=== PATIENT | female | born 1965 | race Caucasian/White ===

== ENCOUNTER → 2016-09-07 | Outpatient (CLI) | payer BC ==
[~2016-09-07] MED LIST: CHOL1TAB46 PO; LISI-461 PO; MAGN500C PO; METO50TA7 PO; SUMA50TA15 PO
--- NOTE | 2016-09-08 12:17 | MAMMOGRAPHY REPORT ---
BILATERAL DIGITAL SCREENING MAMMOGRAM TOMOSYNTHESIS WITH CAD: 09/07/2016 CLINICAL HISTORY: Routine screening. Patient has no complaints. TECHNIQUE: Bilateral breast tomosynthesis in addition to standard 2D mammography was performed. Curr ent study was also evaluated with a Computer Aided Detection (CAD) system. COMPARISON: Comparison is made to exams dated: 09/03/2015 mammogram, 08/29/2014 mammogram, 08/18/2013 mammogram - [facility], 07/27/2012 mammogram, 07/16/2011 mammogram, and 07/15/2010 mamm ogram. BREAST COMPOSITION: The tissue of both breasts is heterogeneously dense, which may obscure small ma sses. FINDINGS: There is architectural distortion in the 12:00 middle to posterior right breast, for whic h additional spot compression tomosynthesis views and possible targeted ultrasound is recommended. There are scattered benign-appearing round and punctate microcalcifications in the breasts. No othe r suspicious mass, architectural distortion or cluster of microcalcifications is seen. IMPRESSION: ACR BI-RADS CATEGORY 0: INCOMPLETE EVALUATION: NEED ADDITIONAL IMAGING EVALUATION The architectural distortion in the 12:00 right breast needs additional evaluation. The patient will be called to schedule an appointment. Approximately 10% of breast cancers are not detected with mammography. A negative mammographic repor t should not delay biopsy if a clinically suggestive mass is present. Rochelle Neal M.D. ay/:09/07/2016 22:33:43 Clip Loading Machine Adjuster: Vanessa MADRID(Adolfo)(Aubree), [facility] letter sent: Addl Imaging 0 BI-RADS Code: ACR BI-RADS Category 0: Incomplete Evaluation: Need Additional Imaging Evaluation
== END | disposition home or self-care (01) ==
LOC: C.MAMM 08:01
PROVIDERS: ATTEND Surgery
DX: Z12.31 Encounter for screening mammogram for malignant neoplasm of breast (principal); R92.8 Other abnormal and inconclusive findings on diagnostic imaging of breast

== ENCOUNTER → 2016-09-16 | Outpatient (CLI) | payer BC ==
--- NOTE | 2016-09-16 12:48 | MAMMOGRAPHY REPORT ---
UNILATERAL RIGHT DIGITAL DIAGNOSTIC MAMMOGRAM TOMOSYNTHESIS AND TARGETED RIGHT ULTRASOUND: 09/16/2016 CLINICAL HISTORY: Callback from screening mammogram for right breast architectural distortion. The patient reports a history of a prior benign excisional biopsy at age 30. She has a strong family hi story of breast cancer including her sister, her mother, and aunts. TECHNIQUE: Breast tomosynthesis in addition to standard 2D mammography was performed. Spot rashawn loreta right CC tomosynthesis images including C views were obtained. COMPARISON: Comparison is made to exams dated: 09/07/2016 mammogram, 09/03/2015 mammogram, 08/29/2014 m ammogram, 08/18/2013 mammogram - [facility], 07/27/2012 mammogram, and 07/16/2011 mamm ogram. BREAST COMPOSITION: The tissue of the right breast is heterogeneously dense, which may obscure smal l masses. FINDINGS: Spot compression views of the right breast demonstrate persistent architectural distortion in the right 12:00 breast. When compared to prior exams, the appearance of this region does appear similar to prior 2-D views dating back to 2007, although the architectural distortion is better abhijit reciated on the tomosynthesis images so comparison to prior 2-D exams is difficult. Targeted ultrasound was performed of the right 12:00 breast in the region of the architectural disto rtion. In the right breast at 12:30, extending from the periareolar region to 3 cm from the nipple, the architectural distortion is seen on ultrasound, without a central mass evident. A scar is seen on the skin in the right superior periareolar region from prior benign excisional biopsy. Given th e adjacent scar and given that the area does appear similar to prior exams, the architectural distor tion may represent postsurgical changes. Given the strong family history of breast cancer, however, breast MRI is recommended to exclude the possibility of abnormal enhancement in this region. IMPRESSION: ACR BI-RADS CATEGORY 0: INCOMPLETE EVALUATION: NEED ADDITIONAL IMAGING EVALUATION, TAR GETED ULTRASOUND ACR BI-RADS CATEGORY 0: INCOMPLETE EVALUATION: NEED ADDITIONAL IMAGING EVALUATION Architectural distortion in the right 12:00 breast may represent postsurgical changes from prior edin ign surgical excision. However, given the strong family history of breast cancer, recommend bilater al breast MRI for further evaluation. The patient has been verbally notified of the results. Approximately 10% of breast cancers are not detected with mammography. A negative mammographic repor t should not delay biopsy if a clinically suggestive mass is present. Jennie Grullon M.D. ah/:09/16/2016 10:39:41 Usability Architect: Champ MADRID(Adolfo)(M), [facility] letter sent: Addl Imaging 0 BI-RADS Code: ACR BI-RADS Category 0: Incomplete Evaluation: Need Additional Imaging Evaluation Ul trasound BI-RADS: ACR BI-RADS Category 0: Incomplete Evaluation: Need Additional Imaging Evaluation
== END | disposition home or self-care (01) ==
LOC: C.MAMM 09:42
PROVIDERS: ATTEND Surgery
DX: R92.2 Inconclusive mammogram (principal); Z80.3 Family history of malignant neoplasm of breast

== ENCOUNTER → 2016-10-02 | Outpatient (CLI) | payer BC ==
[~2016-10-02] MED LIST changes: +GADAVIST IV PRN
--- NOTE | 2016-10-05 12:25 | MAMMOGRAPHY REPORT ---
BREAST MRI OF BOTH BREASTS : 10/02/2016 CLINICAL HISTORY: Architectural distortion seen in the right 12:00 breast mammographically. Strong family history breast cancer. COMPARISON: Comparison is made to exams dated: 09/16/2016 mammogram, 09/16/2016 ultrasound, 09/07/2016 mammogram, 09/03/2015 mammogram, 08/29/2014 mammogram, and 08/18/2013 mammogram - [facility]. Technique: The patient was placed prone in a dedicated breast imaging coil. Precontrast axial T1-we ighted, axial T2-weighted fat saturation, and axial T1-weighted fat saturation images were obtained. After the administration of 8.5 mL of Gadavist IV contrast, sequential T1-weighted fat saturation images were obtained. Subtraction images were obtained of the dynamic contrast enhanced sequences, and 3-D reformations were performed. The Unmetric software was used for kinetic analysis. Findings: There is mild background parenchymal enhancement involving bilateral breasts. There are a few scatt ered foci of enhancement bilaterally, which are considered benign given the multiplicity and bilater ality and are felt to represent normal background enhancement. There are no suspicious enhancing ma sses or areas of abnormal non-mass enhancement within either breast. Specifically, there is no abno rmal enhancement at the site of the architectural distortion seen mammographically in the right [address]. There is no evidence of axillary adenopathy. The chest wall structures are negative. Visualized ex tramammary soft tissues are grossly unremarkable. IMPRESSION: ACR BI-RADS CATEGORY 2: BENIGN No MRI evidence of malignancy in either breast. No MRI abnormality at the site of the architectural distortion seen mammographically. Given the stability mammographically dating back to 2007 and giv en the lack of MRI abnormality, the mammographic distortion is benign and is likely related to prior excisional biopsy. Return to routine screening mammogram schedule is recommended. Jennie Grullon M.D. /:10/03/2016 12:45:31 Manager Net: hand clipper, [facility] letter sent: Normal 1/2 BI-RADS Code: ACR BI-RADS Category 2: Benign
== END | disposition home or self-care (01) ==
LOC: C.MRI 06:24
PROVIDERS: ATTEND Physician Assistant
DX: R92.8 Other abnormal and inconclusive findings on diagnostic imaging of breast (principal)

== ENCOUNTER → 2016-12-22 | Outpatient (CLI) | payer BC ==
[~2016-12-22] MED LIST changes: -GADAVIST IV PRN
== END | disposition home or self-care (01) ==
LOC: C.PATHSPEC 13:50
PROVIDERS: ATTEND Dentist Endodontics
DX: K05.5 Other periodontal diseases (principal)

== ENCOUNTER 2017-06-02 14:13 | Emergency (ER) | payer BC ==
[~2017-06-02] VITALS: Ht 175.3 cm; Wt 87.4 kg
[2017-06-02 14:14] VITALS: TEMP 36.3; Ht 175.3 cm; Wt 87.4 kg
[2017-06-02] MEDS ORDERED: PROMETHAZINE HCL 25 MG TAB PO STA (14:34)
[2017-06-02] MEDS ORDERED: IBUPROFEN 600 MG TAB PO STA (14:34)
[2017-06-02] MEDS ORDERED: PROM25TA9 PO (14:39)
--- NOTE | 2017-06-02 14:41 | EMERGENCY ROOM VISIT NOTE ---
ED Visit Note First contact with patient: 14:19 CHIEF COMPLAINT: Head injury, headache and nausea x4 days HISTORY OF PRESENT ILLNESS: This 52-year-old female patient presented to the emergency department 4 days after receiving a head injury. The patient states she was cleaning in her home, and had placed barstools on top of the bar. One of the stools fell, hitting the patient on the head while she was on the ground scrubbing the floor. There was no loss of consciousness. There has been no vomiting. The patient complains of nausea and a headache which is different than her normal migraines. She states she does have a history of migraines, and did try taking her Imitrex and ibuprofen without relief. The patient denies any loss of consciousness, memory changes, visual disturbances, confusion , dizziness, chest pain, difficulty breathing, or other associated symptoms. The headache has been constant. She describes the headache as like a tight band around her head. Symptoms are worse while looking at a computer screen, such as she was doing at work earlier today. The patient states while talking to the patient on the phone, she felt that she was forgetting what she was talking about. The patient complains of no neck pain. The patient rates the pain as 8/10 and constant. The patient denies bowel or bladder dysfunction. The patient denies any other injuries. REVIEW OF SYSTEMS: A 10 system review of systems was performed with positives and pertinent negatives listed in the history of present illness. All other systems were reviewed and are negative. ALLERGIES: None MEDICATIONS: Metoprolol, Imitrex, lisinopril, magnesium PMH: Migraines, hypertension SOCIAL HISTORY: The patient lives locally with family. She denies drug, alcohol , tobacco use. She states she did have 1 alcoholic beverage on , since the incident, but denies any significant alcohol intake. PHYSICAL EXAM: Vital Signs: Reviewed Nurse's notes, vital signs stable. GENERAL : This is a 52-year-old white female, in no acute distress, well-developed, well -nourished. NEURO: The patient is alert, oriented to person place and time, and coherent. Normal mini mental status exam. Negative Romberg and pronator drift. Cerebellar function intact. HEAD: Normocephalic, atraumatic. EYES: Pupils are equal round and reactive to light and accommodation. EOMs are full and optic discs and fundi are normal. There is no swelling or discoloration of the tissue surrounding the eyes. EARS: External auditory canals clear without blood. NOSE: Patent without tenderness. No septal hematoma. FACE: No facial bone tenderness. NECK: Supple. There is no cervical spine tenderness. The patient does not have tenderness with movement of the neck. ED COURSE: I examined the patient. She presents today complaining of generalized headache with history of a closed head injury 4 days prior. The patient has not had any symptoms concerning for intracranial hemorrhage, however this is certainly a concern. I had a long discussion with the patient and her at bedside. They do suspect a concussion, which is why she continues to experience the symptoms she is experiencing. The patient states she has slept maybe 10 hours in the past 4 days. She has been having difficulty sleeping due to her symptoms. The patient states her biggest concern at the moment is the nausea. The patient was given 25 mg Phenergan and 600 mg ibuprofen with a snack and drink. She was encouraged to rest for the next 24-48 hours. Discharge instructions were reviewed, andtThe patient was discharged home in good condition ambulatory. I attest that I have personally reviewed the patient's current medication list. Patient was found to have normal blood pressure on screening and does not require follow-up. DIFFERENTIAL DIAGNOSIS: Closed head injury, concussion, intracranial hemorrhage , skull fracture, contusion, acute sinusitis, gastroenteritis, influenza, migraine, headache, malignancy, and others DIAGNOSIS: Concussion, headache, closed head injury Current/Historical Medications Scheduled Cholecalciferol (Vitamin D3), 1 TAB PO QAM Lisinopril (Zestril), 10 MG PO QAM Magnesium Oxide (Mg Supplement (Magnesium), 1 CAP PO QAM Metoprolol Succ (Toprol Xl) (Toprol-Xl), 50 MG PO QAM Scheduled PRN Promethazine Hcl (Phenergan), 25 MG PO Q4-6H PRN for Nausea Sumatriptan Succinate (Imitrex), 50 MG PO PRN PRN for Headache Allergies Coded Allergies: No Known Allergies (Unverified , 12/17/15) per H&P Vital Signs Date Time Temp Pulse Resp B/P (MAP) Pulse Ox O2 Delivery O2 Flow Rate FiO2 06/02/17 14:14 36.3 72 18 154/91 98 Room Air Medications Administered Medications (Trade) Dose Ordered Sig/Usha Route Start Time Stop Time Status Last Admin Dose Admin Promethazine HCl (Phenergan Tab) 25 mg NOW STAT PO 06/02/17 14:34 06/02/17 14:37 DC 06/02/17 14:41 25 MG Ibuprofen (Motrin Tab) 600 mg NOW STAT PO 06/02/17 14:34 06/02/17 14:37 DC 06/02/17 14:41 600 MG Departure Information Impression Primary Impression: Closed head injury Additional Impressions: Headache Concussion Dispostion Home / Self-Care Condition GOOD Prescriptions Promethazine Hcl (Phenergan) 25 Mg Tab 25 MG PO Q4-6H Y for Nausea, #18 TAB Prov: Laine Escobedo PA-C 06/02/17 Referrals No Doctor, Assigned (PCP) Jenni Reinoso PA-C Patient Instructions ED Concussion, My [facility] Additional Instructions You have been treated in the Emergency Department for a Closed Head Injury. You have received nausea medicine in the emergency department which impairs your ability to operate a vehicle. It is illegal for you to drive after receiving these medicines. You have been prescribed Phenergan to be used for any nausea or vomiting. Take as prescribed. For pain control, you can use the following dnmc-nag-evobncr medicines (if >12 yo): Ibuprofen(Motrin, Advil) may be used for fever or pain. Use 600mg every six hours as needed. Take with food. Avoid using more than 2400mg in a 24 hour period. Do not use 2400mg per day for more than three consecutive days without physician direction. Prolonged inappropriate use can lead to stomach upset or ulcers. (AND/OR) Acetaminophen(Tylenol) may be used for fever or pain. Use 1000mg every six hours as needed. Avoid using more than 3000mg in a 24 hour period. *Alternate these medications every 3-4 hours for increased pain control. You should relax in a quiet, dark place for the rest of the day. Avoid any possible triggers including: cigarette smoke, caffeine, nicotine, chocolate, wine, beer, loud noises or music, or bright lights. You should schedule a follow-up appointment in 2-3 days with your Primary Care Provider or established Neurologist for further evaluation and treatment of your Headache. Avoid excessive screen-time or other activities where you need to focus for extended periods of time. Return to the Emergency Department if your current symptoms worsen despite treatment course outlined above, or if you develop any of the following symptoms : intractable pain despite aforementioned treatment course, visual disturbances , loss of vision, unilateral weakness or facial drooping, slurring of speech, loss of coordination, or loss of consciousness. Problem Qualifiers Primary Impression: Closed head injury Encounter type: initial encounter Qualified Codes: S09.90XA - Unspecified injury of head, initial encounter Additional Impressions: Headache Headache type: tension-type Headache chronicity pattern: acute headache Intractability: intractable Qualified Codes: G44.201 - Tension-type headache , unspecified, intractable Concussion Encounter type: initial encounter Loss of consciousness presence/duration: without LOC Qualified Codes: S06.0X0A - Concussion without loss of consciousness, initial encounter
[2017-06-02 14:48] VITALS: BP 139/88; PULSE 88; O2SAT 97
== END 2017-06-02 14:49 | disposition home or self-care (01) ==
LOC: C.EDB 14:13 → C.EDD 14:49
DX: S06.0X0A Concussion without loss of consciousness, initial encounter (principal); G44.201 Tension-type headache, unspecified, intractable; I10 Essential (primary) hypertension; Z79.899 Other long term (current) drug therapy; W22.03XA Walked into furniture, initial encounter

== ENCOUNTER → 2017-09-13 | Outpatient (CLI) | payer BC ==
[~2017-09-13] MED LIST changes: -METO50TA7 PO; +METO50TA8 PO; +PROM25TA9 PO
--- NOTE | 2017-09-14 07:40 | MAMMOGRAPHY REPORT ---
BILATERAL DIGITAL SCREENING MAMMOGRAM TOMOSYNTHESIS WITH CAD: 09/13/2017 CLINICAL HISTORY: Routine screening. Patient has no complaints. TECHNIQUE: Breast tomosynthesis in addition to standard 2D mammography was performed. Current study was also evaluated with a Computer Aided Detection (CAD) system. COMPARISON: Comparison is made to exams dated: 09/16/2016 mammogram, 09/16/2016 ultrasound, 09/07/2016 m ammogram, 08/18/2013 mammogram, 09/03/2015 mammogram, and 08/29/2014 mammogram - [facility] enter. BREAST COMPOSITION: The tissue of both breasts is heterogeneously dense, which may obscure small mas ses. FINDINGS: A linear scar marker overlies the 12:00 anterior right breast. There is stable expected ar chitectural distortion in the 12:00 middle one third of the right breast at the site of prior excisio n. There are stable round and punctate microcalcifications bilaterally. No new suspicious mass, arc hitectural distortion or cluster of microcalcifications is seen. IMPRESSION: ACR BI-RADS CATEGORY 1: NEGATIVE There is no mammographic evidence of malignancy. A 1 year screening mammogram is recommended. The pa tient will receive written notification of the results. Approximately 10% of breast cancers are not detected with mammography. A negative mammographic report should not delay biopsy if a clinically suggestive mass is present. Rochelle Neal M.D. ay/:09/13/2017 09:00:57 Silver Recovery Operator: Vanessa ROJO)(Aubree), [facility] letter sent: Normal 1/2 BI-RADS Code: ACR BI-RADS Category 1: Negative
== END | disposition home or self-care (01) ==
LOC: C.MAMM 07:52
PROVIDERS: ATTEND Family Medicine
DX: Z12.31 Encounter for screening mammogram for malignant neoplasm of breast (principal)

== ENCOUNTER → 2017-09-16 | Outpatient (CLI) | payer BC | END | disposition home or self-care (01) | LOC: C.LABBC 07:36 | PROVIDERS: ATTEND Family Medicine | DX: R63.5 Abnormal weight gain (principal); R53.83 Other fatigue ==

== ENCOUNTER 2020-09-16 00:37 | Observation (INO) ==
[2020-09-16] MEDS ORDERED: ONDANSETRON INJ 2 MG/ML 2 ML VIAL IV STA (00:45)
--- NOTE | 2020-09-16 00:51 | Emergency Department Note ---
Impression & Plan Left-sided chest pain, Nausea and vomiting ED Provider Note Name: NEW OLIVARES Age: 55 Sex: F Arrives Via: Ambulance Informant: Patient ED Provider: Saeid Eldridge MD Chief Complaint: Chest Pain Impression: Left sided-chest pain Nausea and Vomiting Medical Decision Makin yr old female with acute left chest pain radiating to left shoulder/neck a ssociated with nausea/vomiting prior to arrival. History of GERD, HTN, Insomnia, HLP, Hiatal Hernia, Renal Artery stenosis, Migraines and father with TX in his 30s. Patient without recent cardiac work up. Did have EGD 1 month ago with esophageal dilation though had no symptoms from that. Symptoms other than mild nausea resolved on ED evaluation. Already received Asa 324mg PO. EKG OK, trop negative and CXR unremarkable other than poor inspiratory effort. Given improvement in symptoms seems unlikely PE/Dissection. No evidence infection on evaluation/work-up. No abdominal TTP on exam. No STEMI but with symptoms having just started will need further rule out and hospitalist consulted. Prior Medical Record and Triage/Nursing Notes reviewed by Me Additional history obtained from chart Differentials:Cardiac ischemia, aortic dissection, pulmonary embolism, pneumothorax, pneumonia, pericarditis, myocarditis, esophageal rupture, GERD, cholecystitis, pancreatitis, musculoskeletal, as well as other pathologies. Vital Signs: reviewed and remarkable for no significant abnormalities Interventions: saline lock, zofran iv, gi cocktail Labs:Reviewed and remarkable for no significant abnormalities Imaging:X ray results are stated below per my interpretation: Chest: 1 view: No infiltrate, no effusion, normal cardiac border. poor inspiratory effort EKG:Per My Interpretation: Indication Chest Pain: NSR 69 bpm, qtc 450. No Ectopy. No Ischemia. No previous for comparison Cardiac/Tele Monitoring: Cardiac Monitoring: An Order was placed for continuous cardiac monitoring. The monitor shows a rate of 65 with a normal sinus rhythm. Consults:Dr Beatriz VELÁZQUEZ Hospitalist Plan: Disposition:Hospitalization. Condition: Good History of Present Illness:55 yr old female arrives for evaluation of chest pain. Patient notes she awoke from sleep with acute left chest pain. Radiates to left neck and shoulder. Associated nausea and vomiting. Notes after vomiting became very short of breath and is worried she may have aspirated. Associated anxiety. No medications taken, nothing made better nor worse. EMS contacted who arrived. Given ASA 324mg PO, SLNTG, Fentanyl 100mcg IV, Zofran 4mg IV. This improved symptoms and now just some mild nausea. Denies current cp, sob, headache, neck pain, fevers, chills, back pain, abdominal pain, urinary/bowel symptoms, leg swelling, calf pain, nor other symptoms. No history CAD. Father with TX in his 30s. Patient with no cardiac work up in last few years. States no recent chest pain nor dyspnea on exertion. EGD done 1 month ago with dilation of shotzi ring. ROS: See above HPI for pertinent positives & negatives. A total of 10 systems reviewed and were otherwise negative. Past Medical History:GERD, HTN, Insomnia, HLP, Hiatal Hernia, Renal Artery stenosis, Migraines Past Surgical History:Cholecystecomty, See Below Family History:Father [place] in his 30s, See Below Social History:Works with [employer], no tobacco use Home Medications:See Below Allergies:Bees, NKDA Vitals:Blood Pressure: 129/76, Pulse 71, RR 18, T 36.4C, O2 95% on RA Physical Exam: GENERAL: Patient is anxious appearing and in mild distress. EYES: No scleral icterus, unremarkable pupils. ENT: Mucous membranes moist, no nasal congestion. NECK: No masses appreciated, nomeningismus, trachea is midline. RESPIRATORY: No dyspnea. Clear to auscultation and equal bilaterally. No wheeze, no rhonchi. CARDIOVASCULAR: Regular rate and rhythm.No murmurs, rubs, gallops appreciated. GASTROINTESTINAL: Abdomen soft, non-tender, no peritonitis.Bowel sounds positive.No masses appreciated. BACK: No midline tenderness, no CVA tenderness EXTREMITIES: Normal motion all extremities, no cyanosis, no edema. NEUROLOGIC: Alert and oriented, no acute motor or sensory deficits, no focal weakness, cranial nerves grossly intact. SKIN: No rash, no jaundice, no diaphoresis. 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 Dysphagia GERD (gastroesophageal reflux disease) Hiatal hernia HPV in female HTN (hypertension) Hypercholesterolemia Insomnia Migraine headache Nausea & vomiting Osteoarthritis Renal artery stenosis Surgical History History of cholecystectomy History of colonoscopy History of cystoscopy History of dilation and curettage (03/2014) for PMB History of hysteroscopy (~1997) with removal of submucous leiomyomata History of wisdom tooth extraction S/P breast lumpectomy (~1994) right--benign S/P dilatation and curettage (11/2014) w/ hysteroscopy w/ cervical dilation, for PMD and cervical stenosis Status post trigger finger release left thumb Family History Father Prostate cancer Coronary heart disease Acute myocardial infarction, Onset Age: 38 Rheumatic fever Mother , at age 68 from recurrent breast cancer Arthritis Breast cancer Hypertension Thyroid disease Aunt Breast cancer Uterus cancer Sister Migraine headache Breast cancer Other No family history of adverse response to anesthesia Social History Smoking Status: Never smoker Second Hand Exposure: Yes (parents smoked); Hx Alcohol Use: Yes Alcohol type: beer Alcohol Intake Frequency: Monthly or Less Hx Substance Use: No Preferred Language: Citizen Of [place] Communication Ability: Effective Visual Impairment: No Limitations Hearing Ability: Normal Deputy Director Of Public [employer] Required: No Beliefs That Will Affect Care: None marital status: Current Living Situation: 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 Safe at Home: Yes Childhood Exposure to Second-Hand Smoke: Yes Diet Comment: regular caffeine: Yes (coffee) during the past year weight has: remained stable Dental Care, Regularly: Yes Physical Activity Frequency: 3-4 Times per Week Physical Activity Frequency Comment: walking Seatbelt Use: always Sunscreen Use: Yes Assistive Devices: Glasses Allergies Allergies Allergy/AdvReac Type Severity Reaction Status Date / Time bee venom protein (honey bee) Allergy Severe ANAPHYLAXIS Verified 09/16/20 01:45 Home Meds Home Medications Medication Instructions Recorded Confirmed magnesium oxide 400 mg PO QAM tab 11/21/18 09/16/20 cholecalciferol (vitamin D3) 25 1,000 units PO QAM tab 12/23/18 09/16/20 mcg (1,000 unit) tablet ezetimibe [Zetia] 10 mg PO QAM 08/14/20 09/16/20 lisinopril 10 mg PO QAM 08/14/20 09/16/20 metoprolol succinate 50 mg PO QAM 08/14/20 09/16/20 pantoprazole 40 mg PO QAM 08/14/20 09/16/20 epinephrine [EpiPen] 0.3 mg IM Q10M PRN 09/16/20 09/16/20 Previous Rx's Medication Instructions Recorded sumatriptan succinate 100 mg tablet 100 mg PO Q2H PRN #27 tab 09/05/20 Results & Data (ED) Vital Signs Vital Signs - 24 hr 09/16/20 00:40 09/16/20 00:44 09/16/20 01:00 Temperature 36.4 C L Temperature Source Oral Pulse Rate 71 71 70 Pulse Rate from SpO2 Sensor 68 Pulse Rhythm Regular Pulse Strength Normal Respiratory Rate 18 16 13 Respiratory Effort / Characteristics Non-Labored Spontaneous Respiratory Depth Normal Respiratory Pattern Regular Blood Pressure 129/76 129/76 123/68 Blood Pressure Mean 93 93 86 Blood Pressure Position Lying Pulse Oximetry 95 97 97 Oxygen Delivery Method Room Air Room Air Room Air Sepsis Recent Fever Within 48 Hours No Sepsis New/Unexplained Change in Mental Status No Sepsis Action Taken by Nursing No Action Required 09/16/20 01:30 09/16/20 02:00 09/16/20 02:30 Temperature Temperature Source Pulse Rate 67 63 71 Pulse Rate from SpO2 Sensor 66 63 71 Pulse Rhythm Pulse Strength Respiratory Rate 21 18 13 Respiratory Effort / Characteristics Respiratory Depth Respiratory Pattern Blood Pressure 100/66 112/64 99/78 L Blood Pressure Mean 77 80 85 Blood Pressure Position Pulse Oximetry 95 97 98 Oxygen Delivery Method Room Air Room Air Room Air Sepsis Recent Fever Within 48 Hours Sepsis New/Unexplained Change in Mental Status Sepsis Action Taken by Nursing 09/16/20 03:01 09/16/20 03:35 Temperature Temperature Source Pulse Rate 68 68 Pulse Rate from SpO2 Sensor 69 67 Pulse Rhythm Pulse Strength Respiratory Rate 20 22 Respiratory Effort / Characteristics Respiratory Depth Respiratory Pattern Blood Pressure 119/77 151/84 H Blood Pressure Mean 91 106 Blood Pressure Position Pulse Oximetry 96 99 Oxygen Delivery Method Room Air Room Air Sepsis Recent Fever Within 48 Hours Sepsis New/Unexplained Change in Mental Status Sepsis Action Taken by Nursing Laboratory Data Result diagrams: 09/16/20 01:05 09/16/20 01:05 Lab Results 09/16/20 09/16/20 09/16/20 Range/Units 01:05 01:05 02:37 WBC 6.71 (4.8-10.8) K/uL RBC 4.09 L (4.2-5.4) M/uL Hgb 12.5 (12.0-16.0) g/dL Hct 35.6 L (37-47) % MCV 87.0 (80-100) fL MCH 30.6 (25-34) pg MCHC 35.1 (32-36) g/dL RDW Std Deviation 41.8 (36.4-46.3) fL RDW Coeff of Chandrika 13.0 (11.5-14.5) % Plt Count 306 (130-400) K/uL MPV 10.0 (7.4-10.4) fL Immature Gran % (Auto) 0.1 % Neut % (Auto) 48.2 % Lymph % (Auto) 36.5 % Placer % (Auto) 11.6 % Eos % (Auto) 3.0 % Baso % (Auto) 0.6 % Neut # (Auto) 3.23 (1.4-6.5) K/uL Lymph # (Auto) 2.45 (1.2-3.4) K/uL Placer # (Auto) 0.78 H (0.11-0.59) K/uL Eos # (Auto) 0.20 (0-0.5) K/uL Baso # (Auto) 0.04 (0-0.2) K/uL Immature Gran # (Auto) 0.01 (0.00-0.02) K/uL Sodium 144 (136-145) mmol/L Potassium 4.0 (3.5-5.1) mmol/L Chloride 111 H (98-107) mmol/L Carbon Dioxide 28 (21-32) mmol/L Anion Gap 5.0 (3-11) BUN 20 H (7-18) mg/dl Creatinine 0.75 (0.6-1.2) mg/dl Est Cr Clr Drug Dosing 90.3 ml/min Est GFR ( Amer) 102.6 Est GFR (Non-Af Amer) 88.5 BUN/Creatinine Ratio 26.4 H (10-20) Glucose 114 H (70-99) mg/dl Calcium 8.5 (8.5-10.1) mg/dl Magnesium 2.0 (1.8-2.4) mg/dl Total Bilirubin 0.2 (0.2-1) mg/dl Direct Bilirubin < 0.1 (0-0.2) mg/dl AST 17 (15-37) U/L ALT 30 (12-78) U/L Alkaline Phosphatase 56 (45-117) U/L Troponin I < 0.015 (0-0.045) ng/ml Total Protein 7.0 (6.4-8.2) gm/dl Albumin 3.2 L (3.4-5.0) gm/dl Lipase 217 (73-393) U/L COVID-19 Eval Order CovFluRsv at [facility] SARS-CoV-2 (PCR) (Negative) Influenza Type A (PCR) (Neg) Influenza Type B (PCR) (Neg) RSV (RT-PCR) (Neg) 09/16/20 Range/Units 02:37 WBC (4.8-10.8) K/uL RBC (4.2-5.4) M/uL Hgb (12.0-16.0) g/dL Hct (37-47) % MCV (80-100) fL MCH (25-34) pg MCHC (32-36) g/dL RDW Std Deviation (36.4-46.3) fL RDW Coeff of Chandrika (11.5-14.5) % Plt Count (130-400) K/uL MPV (7.4-10.4) fL Immature Gran % (Auto) % Neut % (Auto) % Lymph % (Auto) % Placer % (Auto) % Eos % (Auto) % Baso % (Auto) % Neut # (Auto) (1.4-6.5) K/uL Lymph # (Auto) (1.2-3.4) K/uL Placer # (Auto) (0.11-0.59) K/uL Eos # (Auto) (0-0.5) K/uL Baso # (Auto) (0-0.2) K/uL Immature Gran # (Auto) (0.00-0.02) K/uL Sodium (136-145) mmol/L Potassium (3.5-5.1) mmol/L Chloride (98-107) mmol/L Carbon Dioxide (21-32) mmol/L Anion Gap (3-11) BUN (7-18) mg/dl Creatinine (0.6-1.2) mg/dl Est Cr Clr Drug Dosing ml/min Est GFR ( Amer) Est GFR (Non-Af Amer) BUN/Creatinine Ratio (10-20) Glucose (70-99) mg/dl Calcium (8.5-10.1) mg/dl Magnesium (1.8-2.4) mg/dl Total Bilirubin (0.2-1) mg/dl Direct Bilirubin (0-0.2) mg/dl AST (15-37) U/L ALT (12-78) U/L Alkaline Phosphatase (45-117) U/L Troponin I (0-0.045) ng/ml Total Protein (6.4-8.2) gm/dl Albumin (3.4-5.0) gm/dl Lipase (73-393) U/L COVID-19 Eval Order SARS-CoV-2 (PCR) NEGATIVE (Negative) Influenza Type A (PCR) Negative (Neg) Influenza Type B (PCR) Negative (Neg) RSV (RT-PCR) Negative (Neg) Administered Medications Discontinued Medications Al Hydrox/Mg Hydrox/Simethicone (Gi Cocktail Ed Use) 1 dose PO ONE ONE Stop: 09/16/20 01:50 Last Admin: 09/16/20 02:34 Dose: 1 dose Documented by: [id number] Ondansetron HCl (Ondansetron Inj 2 Mg/Ml 2 Ml Vial) 4 mg IV NOW STA Stop: 09/16/20 00:46 Last Admin: 09/16/20 01:09 Dose: 4 mg Documented by: [id number] Discharge Plan Visit Data Chief Complaint: Chest Pain Stated Complaint: LEFT CHEST, SHOULDER AND BACK PAIN ED Provider: Saeid Eldridge Discharge Problem: Left-sided chest pain, Nausea and vomiting Forms Stand Alone Forms: [employer] Prescriptions Prescriptions: No Action magnesium oxide 400 mg magnesium tablet 400 mg PO QAM RF: 0 sumatriptan succinate 100 mg tablet 100 mg PO Q2H PRN (Reason: migraine headache) Qty: 27 RF: 1 cholecalciferol (vitamin D3) 1,000 unit tablet 1,000 units PO QAM RF: 0 metoprolol succinate 50 mg tablet extended release 24 hr 50 mg PO QAM RF: 0 pantoprazole 40 mg tablet,delayed release (DR/EC) 40 mg PO QAM RF: 0 lisinopril 10 mg tablet 10 mg PO QAM RF: 0 ezetimibe [Zetia] 10 mg tablet 10 mg PO QAM RF: 0 epinephrine [EpiPen] 0.3 mg/0.3 mL auto-injector 0.3 mg IM Q10M PRN (Reason: Allergic Reaction) RF: 0 Discharge Problem: Nausea and vomiting Qualifiers: Vomiting type: bilious vomiting Qualified Code(s): R11.14 - Bilious vomiting
[2020-09-16 01:18] LABS: Basophils # (auto) 0.04 K/uL (0-0.2); Basophils % (auto) 0.6 %; Hematocrit (blood only) 35.6 % (37-47); Hemoglobin 12.5 g/dL (12.0-16.0); Immature Granulocytes # (auto) 0.01 K/uL (0.00-0.02); Immature Granulocytes % (auto) 0.1 %; Lymphocytes # (auto) 2.45 K/uL (1.2-3.4); Lymphocytes % (auto) 36.5 %; Mean Corpuscular Hemoglobin 30.6 pg (25-34); Mean Corpuscular Hgb Conc 35.1 g/dL (32-36); Monocytes # (auto) 0.78 K/uL (0.11-0.59); Monocytes % (auto) 11.6 %; Neutrophils # (auto) 3.23 K/uL (1.4-6.5); Neutrophils % (auto) 48.2 %; Platelet Count 306 K/uL (130-400); RDW Standard Deviation 41.8 fL (36.4-46.3); Red Blood Count 4.09 M/uL (4.2-5.4); White Blood Count 6.71 K/uL (4.8-10.8)
[2020-09-16 01:36] LABS: Alanine Aminotransferase 30 U/L (12-78); Albumin Level 3.2 gm/dl (3.4-5.0); Aspartate Aminotransferase 17 U/L (15-37); BUN Creatinine Ratio 26.4 (10-20); Bilirubin Direct < 0.1 mg/dl (0-0.2); Blood Urea Nitrogen 20 mg/dl (7-18); Calcium 8.5 mg/dl (8.5-10.1); Carbon Dioxide 28 mmol/L (21-32); Chloride 111 mmol/L (98-107); Creatinine Clr Calc Pharmacy 90.3 ml/min; Est GFR (African American) 102.6; Est GFR (Non-African American) 88.5; Glucose 114 mg/dl (70-99); Lipase 217 U/L (73-393); Sodium 144 mmol/L (136-145)
[2020-09-16 01:42] LABS: Alkaline Phosphatase 56 U/L (45-117); Bilirubin,Total 0.2 mg/dl (0.2-1); Troponin I < 0.015 ng/ml (0-0.045)
[2020-09-16] MEDS ORDERED: GI COCKTAIL ED USE PO ONE (01:49)
[2020-09-16 03:35] LABS: Influenza A virus by PCR Negative (Neg); Influenza B virus by PCR Negative (Neg); RSV by PCR Negative (Neg); SARS CoV2 RNA(COVID-19) InHosp NEGATIVE (Negative)
--- NOTE | 2020-09-16 04:00 | History & Physical Report ---
Date of Service September 16, 2020 Assessment & Plan Admission and Anticipated Discharge Date Admission Date: 55 yo F w/ pMHx. of HTN, renal artery stenosis, HLD, GERD, Hiatal Hernia with recent EGD s/p dilation of Schatzki ring one month prior presenting with acute severe left sided chest pain and associated trouble breathing concerning for cardiac cause vs. reflux/aspiration event given extensive history and recent EGD/dilation, PE less likely given lack of risk factor or physical exam findings 0 points on Well's criteria (low risk) heart score of 4 (moderate risk) admit as obs. to med/tele for chest pain rule out - trend troponin Q6H - pending symptoms overnight and troponin consider cardiology consult, ECHO, and/or stress testing - EKG with chest pain - nitroglycerin with chest pain GERD - continue home pantoprazole - will need continued outpatient follow up concern for aspiration - speech therapy consulted HLD - continue home Zetia HTN - continue home Lisinopril and metoprolol Migraines - continue Sumatriptan PRN DVT: SCD's Code: full Diet: speech therapy consult History of Present Illness Chief Complaint: chest pain Primary Care Provider: DO Ana Askew Miguel is here today with her for left sided chest pain. She woke up at 11PM with acute left sided chest pain that radiated to her left neck and shoulder with nausea and vomiting. She had associated sensation that she coudn't get air in. She felt like she couldn't breath and this lasted for about an hour. She also brought up that the pain was so bad she couldn't breath. The pain was described as 7/10 pressure that rick to her back and shoulders. She had one prior episode like this 10 years prior at that time there was some concern for aspiration. She was given ASA, SLNTG, Fentanyl, Zofran and this resolved her symptoms. She is currently chest pain free. pMHx. pertinent for recent EGD with dilation performed of Schatzki ring FHx. pertient for father how had an [place] in his 30's Allergies Allergy/AdvReac Type Severity Reaction Status Date / Time bee venom protein (honey bee) Allergy Severe ANAPHYLAXIS Verified 09/16/20 01:45 Home Medications Medication Instructions Recorded Confirmed Type magnesium oxide 400 mg PO QAM tab 11/21/18 09/16/20 History cholecalciferol (vitamin D3) 25 1,000 units PO QAM tab 12/23/18 09/16/20 History mcg (1,000 unit) tablet ezetimibe [Zetia] 10 mg PO QAM 08/14/20 09/16/20 History lisinopril 10 mg PO QAM 08/14/20 09/16/20 History metoprolol succinate 50 mg PO QAM 08/14/20 09/16/20 History pantoprazole 40 mg PO QAM 08/14/20 09/16/20 History sumatriptan succinate 100 mg tablet 100 mg PO Q2H PRN #27 tab 09/05/20 09/16/20 Rx epinephrine [EpiPen] 0.3 mg IM Q10M PRN 09/16/20 09/16/20 History Past Med/Surg History Medical History 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 Dysphagia GERD (gastroesophageal reflux disease) Hiatal hernia HPV in female HTN (hypertension) Hypercholesterolemia Insomnia Migraine headache Nausea & vomiting Osteoarthritis Renal artery stenosis Surgical History History of cholecystectomy History of colonoscopy History of cystoscopy History of dilation and curettage (03/2014) for PMB History of hysteroscopy (~1997) with removal of submucous leiomyomata History of wisdom tooth extraction S/P breast lumpectomy (~1994) right--benign S/P dilatation and curettage (11/2014) w/ hysteroscopy w/ cervical dilation, for PMD and cervical stenosis Status post trigger finger release left thumb Family History Father Prostate cancer Coronary heart disease Acute myocardial infarction, Onset Age: 38 Rheumatic fever Mother , at age 68 from recurrent breast cancer Arthritis Breast cancer Hypertension Thyroid disease Aunt Breast cancer Uterus cancer Sister Migraine headache Breast cancer Other No family history of adverse response to anesthesia Social History Smoking Status: Never smoker Second Hand Exposure: Yes (parents smoked); Hx Alcohol Use: Yes Alcohol type: beer Alcohol Intake Frequency: Monthly or Less Hx Substance Use: No Preferred Language: Lithuanian Communication Ability: Effective Visual Impairment: No Limitations Hearing Ability: Normal Cryptozoologist Required: No Beliefs That Will Affect Care: None marital status: Current Living Situation: 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 Safe at Home: Yes Childhood Exposure to Second-Hand Smoke: Yes Diet Comment: regular caffeine: Yes (coffee) during the past year weight has: remained stable Dental Care, Regularly: Yes Physical Activity Frequency: 3-4 Times per Week Physical Activity Frequency Comment: walking Seatbelt Use: always Sunscreen Use: Yes Assistive Devices: Glasses Review of Systems Review of Systems: Constitutional: denies fevers, chills, nausea (currently) admits diaphoresis with episode, vomiting, and weight gain Head: denies trauma, LOC, light headedness, vision changes Neurologic: denies syncope, slurring speech, focal weakness, neck stiffness ENT: denies rhinorrhea Cardiac: denies PND, palpitations, edema Pulm: denies hemoptysis admits cough, shortness of breath, pain on inspiration GI: denies constipation, diarrhea, LBM 09/15 Physical Exam Constitutional: WD/WN, vitals as above Eyes: PERRL, conjunctivae normal, anicteric sclerae ENMT: external ear and nose normal, oropharynx normal Neck: normal visual inspection Respiratory: normal respiratory effort, lungs clear to auscultation Cardiovascular: RRR, no murmur, no edema Chest (Breasts): normal inspection/palpation of breasts Gastrointestinal (Abdomen): normal bowel sounds, soft, nTTP Musculoskeletal: Head/Neck/Chest: no chest tenderness Skin: no rashes, warm and dry Neurologic: no focal motor deficits Psychiatric: Orientation: alert Eye Contact: good eye contact Speech: no pressured speech Affect: euthymic affect Results & Data Results & Data ([facility]) Vital Signs (Past 12 Hours) Vital Signs Temp Pulse Resp BP Pulse Ox 09/16/20 03:35 68 22 151/84 H 99 09/16/20 03:01 68 20 119/77 96 09/16/20 02:30 71 13 99/78 L 98 09/16/20 02:00 63 18 112/64 97 09/16/20 01:30 67 21 100/66 95 09/16/20 01:00 70 13 123/68 97 09/16/20 00:44 71 16 129/76 97 09/16/20 00:40 36.4 C L 71 18 129/76 95 CBC Results Results Complete Blood Count Results: RBC 4.09 M/uL (4.2-5.4) L 09/16/20 WBC 6.71 K/uL (4.8-10.8) 09/16/20 Hgb 12.5 g/dL (12.0-16.0) 09/16/20 Hct 35.6 % (37-47) L 09/16/20 Plt Count 306 K/uL (130-400) 09/16/20 Chemistry (BMP) Results BMP Results: Sodium 144 mmol/L (136-145) 09/16/20 Potassium 4.0 mmol/L (3.5-5.1) 09/16/20 Chloride 111 mmol/L (98-107) H 09/16/20 BUN 20 mg/dl (7-18) H 09/16/20 Creatinine 0.75 mg/dl (0.6-1.2) 09/16/20 Glucose 114 mg/dl (70-99) H 09/16/20 Code Status & VTE Plan VTE Prophylaxis Plan VTE Prophylaxis will be ordered: Yes Resident Activity Tracking Resident Involvement: Resident Care Provided Care Provided: Adult Hospital Medicine
[2020-09-16] MEDS ORDERED: ALUMINUM/MAGNESIUM SUSP 30 ML UDC PO PRN (04:46)
[2020-09-16] MEDS ORDERED: NITROGLYCERIN SL 0.4 MG/TAB TAB SL PRN (04:46)
[2020-09-16] MEDS ORDERED: ACETAMINOPHEN 325 MG TAB PO PRN (04:46)
[2020-09-16] MEDS ORDERED: SUMAtriptan succinate 100 MG TAB PO PRN (04:46)
[2020-09-16] MEDS ORDERED: MAGNESIUM HYDROXIDE SUSP 30 ML UDC PO PRN (04:46)
[2020-09-16] MEDS ORDERED: POLYETHYLENE (MIRALAX) 17 GM PACK PO PRN (04:46)
[2020-09-16] MEDS ORDERED: ONDANSETRON INJ 2 MG/ML 2 ML VIAL IV PRN (04:46)
--- NOTE | 2020-09-16 08:00 | XRay Report ---
XR chest 1V portable CLINICAL HISTORY: Atypical chest pain. COMPARISON STUDY: No previous studies for comparison. FINDINGS: Lung volumes are mildly diminished. Minimal linear left basilar opacity suggests atelectasi s. There is no pneumothorax or pleural effusion. Cardiac size is normal. Mediastinal contours are nor mal. There is no evidence for pulmonary edema. IMPRESSION: No acute cardiopulmonary findings. ACT 112: Negative or not required by law. Electronically signed by: Aden Novak M.D. 09/16/2020 7:59 AM
[2020-09-16] MEDS ORDERED: lisinopril 10 MG TAB PO SCH (09:00)
[2020-09-16] MEDS ORDERED: PANTOprazole 40 MG TAB PO SCH (09:00)
[2020-09-16] MEDS ORDERED: EZETIMIBE 10 MG TABLET PO SCH (09:00)
[2020-09-16] MEDS ORDERED: METOPROLOL SUCC 50MG EXT REL TAB PO SCH (09:00)
--- NOTE | 2020-09-16 15:04 | Fluoroscopy Report ---
FL barium swallow CLINICAL HISTORY: r/o GERD COMPARISON STUDY: No previous studies for comparison. Fluoroscopy time: 1.1 minutes. Number fluoroscopic images: 19. FINDINGS: Mucosal detail is mildly diminished on this examination. There is moderate esophageal dysmo tility. A small hiatal hernia is present. There is persistent narrowing of the distal esophagus. This is mildly irregular. Gastroesophageal reflux was elicited. IMPRESSION: 1. Persistent narrowing of the distal esophagus which is mildly irregular. Correlation with recent en doscopy results is recommended. 2. Small hiatal hernia. Moderate gastroesophageal reflux. 3. Esophageal dysmotility. ACT 112: Negative or not required by law. Electronically signed by: Aden Novak M.D. 09/16/2020 3:03 PM
--- NOTE | 2020-09-16 16:27 | Discharge Summary ---
Date of Service September 16, 2020 Admission HPI Per Admitting Provider Ana Rivera is here today with her for left sided chest pain. She woke up at 11PM with acute left sided chest pain that radiated to her left neck and shoulder with nausea and vomiting. She had associated sensation that she coudn't get air in. She felt like she couldn't breath and this lasted for about an hour. She also brought up that the pain was so bad she couldn't breath. The pain was described as 7/10 pressure that irck to her back and shoulders. She had one prior episode like this 10 years prior at that time there was some concern for aspiration. She was given ASA, SLNTG, Fentanyl, Zofran and this resolved her symptoms. She is currently chest pain free. pMHx. pertinent for recent EGD with dilation performed of Schatzki ring FHx. pertient for father how had an MN in his 30's Principal Diagnosis Chest pain -> Likely esophageal in nature Discharge Exam Constitutional WD/WN, vitals as above Eyes EOM intact bilaterally; no conjunctival abnormality ENMT external ear and nose normal, oropharynx normal Neck trachea midline, no thyromegaly normal visual inspection Respiratory normal respiratory effort, lungs clear to auscultation no respiratory distress Cardiovascular RRR, no murmur, no edema Gastrointestinal (Abdomen) Inspection/Auscultation: abdomen normal to inspection; abdomen not distended Musculoskeletal no cyanosis or clubbing, extremities motor strength 5/5 Skin no rashes, warm and dry Neurologic moves all extremities and awake Psychiatric Orientation: alert, oriented to person and cooperative Discharge Data Allergies Allergy/AdvReac Type Severity Reaction Status Date / Time bee venom protein (honey bee) Allergy Severe ANAPHYLAXIS Verified 09/16/20 01:45 Consultations 09/16/20 01:48 ED Decision to Admit Stat Ordered Studies 09/16/20 14:30 FL barium swallow Routine Hospital Course (1) Left-sided chest pain: Unlikely to be cardiac given young age and multiple negative troponins. No acute EKG changes. - Barium swallow on 09/16 showed esophageal dysmotility, hiatal hernia, and continued narrowing at lower esophagus (likely area of prior Schatze's ring). Patient also felt this was more GI in nature vs. cardiac. Preferred discharge and outpatient follow-up with Dr. Marie. 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 We also discussed GERD- reduction strategies such as being upright after meals, avoiding alcohol/late meals/spicy foods late at night. She will see Dr. Marie as outpatient in 1-2 weeks. Total Time Total Time Spent Total Time Spent (In Minutes): 35 Discharge Plan Discharge Items Patient Disposition: Home - Self-Care Reason For Visit: CHEST PAIN Discharge Diagnosis: Heart burn/esophageal pain Activity: Resume your previous activity Non-emergency contact: Primary Care Provider Call non-emergency contact if: your symptoms worsen and your pain is not controlled Follow-up/Referrals: Levi Marie DO [Physician] - (Please see Dr. Marie in 1-2 weeks if you have any persistent symptoms.) Jacquelyn Powell DO [Primary Care Provider] - Abundio Covington MD [Physician] - 09/17/20 10:30 am Diet: Heart Healthy Addtl Attending Provider Instructions: Ms. Rivera, You were admitted with chest pain. Luckily, your troponin testing (heart testing) was negative or normal, meaning you did not have a heart attack. This is great news! We think the pain was most likely from heart burn or esophageal pain. You had a stricture dilated about [address] Marie, and it's possible some stomach acid hit this part of your esophageus and caused pain. Please continue your home medications. Please avoid late meals and spicy foods or alcohol late at night as this can worsen heart burn. The Schatzi's rings can come back sometimes, so if you continue to have symptoms, please see Dr. Marie in the office to discuss possibly having to repeat the EGD. Your barium swallow still shows a bit of narrowing where the ring was. This could be some residual ring or possibly just the area still healing. The speech folks recommend a "slippery" diet which means lots of smaller bites with sauces and moister to help things slide down. Pending Studies at Discharge: No Stand-Alone Forms: My Mad Mimi, Smoking Cessation Medications and DC Order Prescriptions: Continued magnesium oxide 400 mg magnesium tablet 400 mg PO QAM RF: 0 sumatriptan succinate 100 mg tablet 100 mg PO Q2H PRN (Reason: migraine headache) Qty: 27 RF: 1 cholecalciferol (vitamin D3) 1,000 unit tablet 1,000 units PO QAM RF: 0 metoprolol succinate 50 mg tablet extended release 24 hr 50 mg PO QAM RF: 0 pantoprazole 40 mg tablet,delayed release (DR/EC) 40 mg PO QAM RF: 0 lisinopril 10 mg tablet 10 mg PO QAM RF: 0 ezetimibe [Zetia] 10 mg tablet 10 mg PO QAM RF: 0 epinephrine [EpiPen] 0.3 mg/0.3 mL auto-injector 0.3 mg IM Q10M PRN (Reason: Allergic Reaction) RF: 0 Discharge Orders: Discharge Order (Routine); Ordered 09/16/20 Ordered By: Fernando Melendez/Other Patient Handouts: Understanding a Schatzki Ring, How Acid Reflux Affects Your Throat, Discharge Instructions- Eating a ... Admission Data Admit Date/Time: 09/16/20 02:46 Attending Provider: Fernando Lemos Admit Provider: Julio Cesar Moss Primary Care Provider: Jacquelyn Powell Other Providers: Fernando Lemos Other Interventions: Discharge Summary Assessment (RN) Last Done: 09/16/20 15:24 Coding Level of Care Code 24570 OBS Care - Discharge Diagnoses Left-sided chest pain R07.9
--- NOTE | 2020-09-17 05:28 | Electrocardiogram Report ---
Test Reason : Blood Pressure : / mmHG Vent. Rate : 070 BPM Atrial Rate : 070 BPM P-R Int : 124 ms QRS Dur : 082 ms QT Int : 422 ms P-R-T Axes : 073 020 014 degrees QTc Int : 455 ms Poor data quality, interpretation may be adversely affected Normal sinus rhythm with sinus arrhythmia Normal ECG No previous ECGs available Confirmed by Kishore Pratt ([id number]) on 09/17/2020 5:28:04 AM Referred By: REFERRED SELF Confirmed By:Kishore Pratt
== END 2020-09-16 15:18 | disposition home or self-care (01) ==
LOC: 2N 00:37 → ED 00:37 → SUATTDRO 02:46 → 2N 04:22